=== PATIENT | male | born 1960 | race Caucasian/White ===

== ENCOUNTER 2016-06-18 19:39 | Inpatient (IN) | payer BC ==
--- NOTE | ~2016-06-18 | DS ---
Discharge Summary [facility] [address] [place]. [address] NAME: BASIM LECHUGA : 64 STATUS : DIS IN PAT#: [id number] AGE: 55 ADM/REG DATE : 06/18/16 MR#: [id number] REPORT SERV DATE: 06/21/16 DICTATED BY: YEN ROBERTSON DATE: 06/21/16 REPORT STATUS : Draft TRANSCRIBED BY: MODL DATE: 06/21/16 ADMISSION DATE: 06/18/2016 DISCHARGE DATE: 06/21/2016 DIAGNOSES ON ADMISSION: 1. Acute changes concerning for acute coronary syndrome, likely secondary to uncontrolled hypertension. 2. High blood pressure, uncontrolled. 3. Diabetes, uncontrolled. 4. Hyperlipidemia. 5. History of percutaneous coronary intervention in 2014. DIAGNOSES ON DISCHARGE: 1. Hypertension, controlled. 2. No evidence of acute coronary syndrome. 3. Stress test negative for acute ischemia. 4. Dizziness secondary to high blood pressure, resolved with blood pressure being controlled. 5. Diabetes mellitus, uncontrolled on admission, currently controlled on Lantus and NovoLog. He had diabetic education as well. 6. Chest pain, present on admission, resolved. 7. Hypertensive urgency, present on admission, resolved. CONSULTANTS ON THE CASE: Cardiologists, Dr. Salcedo, Dr. Shea, and Dr. Oneal. IMAGING STUDIES DONE DURING THIS HOSPITALIZATION: 1. Chest x-ray done on 06/18/2016: No acute cardiopulmonary process. 2. CT of the brain done on 06/20/2016: Unremarkable noncontrast CT of the brain. 3. Echocardiography done on 06/20/2016 revealed borderline left ventricular systolic function with estimated ejection fraction of 50%, normal right ventricular chamber size and systolic function. No significant valvular regurgitation or stenosis. 4. Stress test, which was done on 06/19/2016: Imaging demonstrating no ischemia. Technical limitation as below. Post-infusion, left ventricular ejection fraction was 38%. Consider echocardiogram for better assessment of ejection fraction. Overall, moderate risk vasodilator stress test due to decreased ejection fraction. HISTORY OF PRESENT ILLNESS: Briefly, this is a very pleasant 55-year-old male, who was admitted by Dr. Khoury on 06/18/2016, with hypertensive urgency, hyperlipidemia, not taking any medications. He was at [facility] from where he was transferred to [facility]. He had initially negative troponins, which stayed essentially negative afterwards during hospitalization. He denied any chest pain or palpitations, but systolic blood pressure was in 200s and he did not have any neurological symptoms. For details, see history of present illness dictated by Dr. Khoury on 06/18/2016. HOSPITAL COURSE: Briefly, the patient was initially started on heparin drip per reinforcing bar setter. The patient was seen by reinforcing bar setter and he had a stress test, which did not Discharge Summary [address] [place]. [address] NAME: BASIM LECHUGA : 64 STATUS : DIS IN PAT#: [id number] AGE: 55 ADM/REG DATE : 06/18/16 MR#: [id number] REPORT SERV DATE: 06/21/16 DICTATED BY: YEN ROBERTSON DATE: 06/21/16 REPORT STATUS : Draft TRANSCRIBED BY: ADITI DATE: 06/21/16 show any ischemia. Because the ejection fraction on the stress test was 38%, it was labeled as moderate-risk stress test, but later echocardiogram on 06/20/2016, shows normal ejection fraction. Director Medical evaluated and Dr. Oneal saw the stress test and she thinks that the patient does not have any ischemia and that interpretation of the stress test was related to his low ejection fraction which was inaccurate on the stress test. The patient's symptoms were related to elevated blood pressure which is essentially uncontrolled, and the patient does not take any blood pressure medications at home. He used to be on blood pressure medications, but somehow he is not on it anymore, and there was some degree of noncompliance, so he was strongly encouraged to follow up with his primary care physician for further blood pressure control. Here in the hospital, he was started on carvedilol as well as later hydralazine 25 mg three times daily was added and lisinopril 20 mg was added, and blood pressure became controlled. It was 148/73, 159/77, 145/70, so the patient was discharged with controlled blood pressure of 145/70. He was given prescription to continue his blood pressure medications at home as well as his dizziness that he had in the beginning of admission had resolved. The patient had a CT of the head which was negative for any abnormality as well as he did not have any neurological deficits. He was also offered to have an MRI of the brain, but he refused because he is claustrophobic and he did not have any focal deficit. He was recommended to continue also baby aspirin at 81 mg a day. Cardiology recommended the patient to be discharged to follow up with the primary care physician as well as with Dr. Shea in a month. Blood sugar got under control, initially was above 200 and now it is 185, 187, 178. He had extensive diabetic education. He was discharged on Lantus 20 units in the morning and Humalog 5 units before meals. The patient is also recommended to follow up with Dr. Luca Carrillo for further blood sugar control and he has an appointment with Dr. Carrillo for blood pressure and blood sugar control which was scheduled on 06/25/2016 at 9 a.m. as well as with Dr. Shea's appointment, the patient needs to call to reschedule. The patient was discharged in a stable condition. Everything was discussed with the patient and with his . It was emphasized about the importance to take blood pressure medications regularly and to have blood pressure under control. It was also recommended to avoid Advil and other nonsteroidals and avoid Goody powders because they can cause such complications as bleeding and stomach ulcer. DISCHARGE MEDICATIONS: Carvedilol 12.5 p.o. b.i.d., aspirin 81 mg daily, Lipitor 40 mg a day, lisinopril 20 mg a day, hydralazine 25 mg three times a day, Lantus 20 units daily, and Humalog 5 units before meals. The patient was discharged in a stable condition. I spent 45 minutes on discharge. I also gave the patient a note that he was hospitalized from 06/18/2016 to 06/21/2016 at [facility] and he is okay to start working on 06/26/2016, but before he has to see Dr. 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 /ADITI Yen Discharge Summary [facility] [address] [place] [address] NAME: BASIM LECHUGA : 64 STATUS : DIS IN PAT#: [id number] AGE: 55 ADM/REG DATE : 06/18/16 MR#: [id number] REPORT SERV DATE: 06/21/16 DICTATED BY: YEN ROBERTSON DATE: 06/21/16 REPORT STATUS : Draft TRANSCRIBED BY: MODL DATE: 06/21/16 Tyron Robertson / [id number] CC: Tyron Gustafson MD
[~2016-06-18 19:39] MED LIST: ADVIL PO; PERCOCET 7.5/321 TAB PO; [UNRECOGNIZED DRUG - OTHER] PO
[2016-06-18 21:03] LABS: CHOL/HDL RATIO(NOT ORDER) 3.8 (0-5); CHOLESTEROL 136 MG/DL (< 200); FREE T4 1.52 NG/DL (0.76-1.46); HDL CHOLESTEROL 36 MG/DL (> 39); LDL CHOLESTEROL 89 MG/DL (< 130); NON-HDL CHOLESTEROL 100 MG/DL (< 160); TRIGLYCERIDE 55 MG/DL (< 150); TROPONIN I <0.02 NG/ML (<0.05)
[2016-06-19 04:38] LABS: BASOPHILS 0.1 %; BASOPHILS ABSOLUTE 0.01 10/3/uL (0.0-0.16); EOSINOPHILS 0.1 %; EOSINOPHILS ABSOLUTE 0.01 10/3/uL (0.0-0.53); HEMATOCRIT 40.9 % (40.0-51.0); HEMOGLOBIN 14.1 g/dL (13.6-17.8); IMMATURE GRANULOCYTES 0.2 %; IMMATURE GRANULOCYTES ABSOLUTE 0.03 10/3/uL (0.0-0.11); LYMPHOCYTES 12.6 %; LYMPHOCYTES ABSOLUTE 1.69 10/3/uL (0.67-4.30); MEAN CORPUS HGB CONC 34.5 g/dL (32.0-36.0); MEAN CORPUSCULAR HEMOGLOB 28.3 pg (26.0-34.0); MEAN CORPUSCULAR VOLUME 82.1 fL (80-100); MEAN PLATELET VOLUME 11.8 fL (9.2-13.0); MONOCYTES 4.9 %; MONOCYTES ABSOLUTE 0.66 10/3/uL (0.21-1.20); NEUTROPHILS 82.1 %; NEUTROPHILS ABSOLUTE 11.01 10/3/uL (2.02-8.40); PLATELET COUNT 257 10/3/uL (150-400); RED CELL COUNT 4.98 10/6/uL (4.7-6.1); WHITE BLOOD CELLS 13.4 10/3/uL (4.5-10.5)
[2016-06-19 04:39] LABS: MANUAL DIFF NO %
[2016-06-19 04:50] LABS: ALBUMIN 3.5 G/DL (3.5-5.0); ALKALINE PHOSPHATASE 100 U/L (45-117); BUN (BLOOD UREA NITROGEN) 13 MG/DL (6-23); CALCIUM, SERUM 8.6 MG/DL (8.5-10.4); CHLORIDE, SERUM 106 MMOL/L (96-112); CO2 (CARBON DIOXIDE) 26 MMOL/L (24-34); GLOBULIN 3.5 G/DL (2.5-4.1); POTASSIUM, SERUM 3.7 MMOL/L (3.5-5.3); SGOT(AST) 12 U/L (5-40); SGPT(ALT) 21 U/L (5-65); SODIUM, SERUM 143 MMOL/L (135-148); TOTAL BILIRUBIN 0.6 MG/DL (0-1.2)
[2016-06-19 04:53] LABS: CREATININE 0.71 MG/DL (0.70-1.30); GFR AFRICAN AMERICAN 124 ML/MIN (>=60); GFR NON AFRICAN AMERICAN 107 ML/MIN (>=60); GLUCOSE, SERUM 212 MG/DL (60-99)
[2016-06-20 06:09] LABS: BASOPHILS 0.3 %; BASOPHILS ABSOLUTE 0.03 10/3/uL (0.0-0.16); EOSINOPHILS 1.1 %; EOSINOPHILS ABSOLUTE 0.12 10/3/uL (0.0-0.53); HEMATOCRIT 41.2 % (40.0-51.0); HEMOGLOBIN 13.9 g/dL (13.6-17.8); IMMATURE GRANULOCYTES 0.3 %; IMMATURE GRANULOCYTES ABSOLUTE 0.03 10/3/uL (0.0-0.11); LYMPHOCYTES 26.1 %; LYMPHOCYTES ABSOLUTE 2.81 10/3/uL (0.67-4.30); MEAN CORPUS HGB CONC 33.7 g/dL (32.0-36.0); MEAN CORPUSCULAR HEMOGLOB 28.2 pg (26.0-34.0); MEAN CORPUSCULAR VOLUME 83.6 fL (80-100); MEAN PLATELET VOLUME 11.5 fL (9.2-13.0); MONOCYTES 5.4 %; MONOCYTES ABSOLUTE 0.58 10/3/uL (0.21-1.20); NEUTROPHILS 66.8 %; PLATELET COUNT 214 10/3/uL (150-400); RBC DISTRIBUTION WIDTH 12.9 % (12.0-16.0); RED CELL COUNT 4.93 10/6/uL (4.7-6.1); WHITE BLOOD CELLS 10.8 10/3/uL (4.5-10.5)
[2016-06-20 06:11] LABS: MANUAL DIFF NO %
[2016-06-20 06:22] LABS: BUN (BLOOD UREA NITROGEN) 12 MG/DL (6-23); CALCIUM, SERUM 8.4 MG/DL (8.5-10.4); CHLORIDE, SERUM 110 MMOL/L (96-112); CO2 (CARBON DIOXIDE) 22 MMOL/L (24-34); CREATININE 0.76 MG/DL (0.70-1.30); GFR AFRICAN AMERICAN 121 ML/MIN (>=60); GFR NON AFRICAN AMERICAN 104 ML/MIN (>=60); GLUCOSE, SERUM 244 MG/DL (60-99); SODIUM, SERUM 141 MMOL/L (135-148)
[2016-06-20 09:39] LABS: AMPHETAMINES (NOT ORD) NEG (NEG); BARBITURATES (NOT ORDERED NEG (NEG); BENZODIAZEPINES (NOT ORD) NEG (NEG); CANNABINOIDS (THC) NEG (NEG); COCAINE (NOT ORDERED) NEG (NEG); OPIATES NEG (NEG); PHENCYCLIDINE(PCP) NEG (NEG); TRICYCLICS NEG (NEG)
[2016-06-21 05:28] LABS: BASOPHILS 0.3 %; BASOPHILS ABSOLUTE 0.03 10/3/uL (0.0-0.16); EOSINOPHILS 1.5 %; EOSINOPHILS ABSOLUTE 0.16 10/3/uL (0.0-0.53); HEMATOCRIT 40.1 % (40.0-51.0); HEMOGLOBIN 13.7 g/dL (13.6-17.8); IMMATURE GRANULOCYTES 0.2 %; IMMATURE GRANULOCYTES ABSOLUTE 0.02 10/3/uL (0.0-0.11); LYMPHOCYTES ABSOLUTE 1.88 10/3/uL (0.67-4.30); MEAN CORPUS HGB CONC 34.2 g/dL (32.0-36.0); MEAN CORPUSCULAR HEMOGLOB 28.5 pg (26.0-34.0); MEAN CORPUSCULAR VOLUME 83.4 fL (80-100); MEAN PLATELET VOLUME 11.3 fL (9.2-13.0); MONOCYTES 9.3 %; MONOCYTES ABSOLUTE 0.97 10/3/uL (0.21-1.20); NEUTROPHILS 70.7 %; NEUTROPHILS ABSOLUTE 7.41 10/3/uL (2.02-8.40); PLATELET COUNT 226 10/3/uL (150-400); RBC DISTRIBUTION WIDTH 12.9 % (12.0-16.0); RED CELL COUNT 4.81 10/6/uL (4.7-6.1); WHITE BLOOD CELLS 10.5 10/3/uL (4.5-10.5)
[2016-06-21 05:29] LABS: MANUAL DIFF NO %
[2016-06-21 05:40] LABS: BUN (BLOOD UREA NITROGEN) 12 MG/DL (6-23); CALCIUM, SERUM 8.4 MG/DL (8.5-10.4); CHLORIDE, SERUM 108 MMOL/L (96-112); CREATININE 0.84 MG/DL (0.70-1.30); GFR AFRICAN AMERICAN 116 ML/MIN (>=60); GFR NON AFRICAN AMERICAN 100 ML/MIN (>=60); GLUCOSE, SERUM 211 MG/DL (60-99); POTASSIUM, SERUM 3.6 MMOL/L (3.5-5.3); SODIUM, SERUM 143 MMOL/L (135-148)
[2016-06-21 05:42] LABS: CO2 (CARBON DIOXIDE) 28 MMOL/L (24-34)
[2016-06-21] MEDS ORDERED: COREG12 PO (12:55)
[2016-06-21] MEDS ORDERED: LIPITOR40 PO (12:55)
[2016-06-21] MEDS ORDERED: ASAB PO (12:55)
[2016-06-21] MEDS ORDERED: APRES25 PO (12:56)
[2016-06-21] MEDS ORDERED: PRIN20 PO (12:56)
[2016-06-21] MEDS ORDERED: LANTUS SC (12:57)
[2016-06-21] MEDS ORDERED: HUMALOG SC (12:58)
[2016-06-21] MEDS ORDERED: NITROQUICK0.4 MG SL (12:59)
[2016-06-21] MEDS ORDERED: GLUCPH PO (12:59)
== END 2016-06-21 13:20 | disposition home or self-care (01) | DRG 305 ==
LOC: 5NO 19:39
PROVIDERS: Hospitalist; Internal Medicine
DX: I16.0 Hypertensive urgency (principal); E11.65 Type 2 diabetes mellitus with hyperglycemia; E78.5 Hyperlipidemia, unspecified; Z95.5 Presence of coronary angioplasty implant and graft
CPT/HCPCS: 70450; 78452; 80048; 80053; 80061; 80305; 82962; 83036; 83735; 84439; 84443; 84484; 85025; 85379; 85730; 93005; 93017; 93306; A9270-GY; A9502; J0153; J0360